=== PATIENT | female | born 1995 | race African-American/Black ===

== ENCOUNTER 2021-10-25 18:36 | Emergency (ER) | payer OTHER, SELFPAY ==
[2021-10-25 19:22] VITALS: BP 106/78; PULSE 76; RESP 18; TEMP 36.6; O2SAT 100
--- NOTE | 2021-10-25 19:43 | PC.NURSE ---
Pt family arrived to ED and states they are taking patient to another ER. Pt told that she is welcome to come back and be seen at any time. IV removed that had been placed by EMS. Stable on departure from ER.
== END 2021-10-25 19:49 | disposition left against medical advice (07) ==
DX: R10.30 Lower abdominal pain, unspecified (principal)
CPT/HCPCS: 99199